=== PATIENT | female | born 1965 | race Two or more races ===

== ENCOUNTER 2024-06-01 12:24 | Emergency (ER) | payer MEDICARE, MEDICAID ==
[~2024-06-01] VITALS: Ht 149.9 cm; Wt 82.1 kg
[2024-06-01 13:34] VITALS: BP 155/77; PULSE 90; RESP 16; TEMP 98.4; O2SAT 95
[2024-06-01] MEDS ORDERED: TRAM50TA2 PO (14:04)
[2024-06-01] MEDS ORDERED: PRED20TA2 PO (14:04)
[2024-06-01] MEDS: KETOROLAC TROMETH 60MG/2ML VIAL IM ONE (14:07)
== END 2024-06-01 14:20 | disposition home or self-care (01) ==
LOC: ER 12:24
DX: M17.11 Unilateral primary osteoarthritis, right knee (principal); I10 Essential (primary) hypertension; J45.909 Unspecified asthma, uncomplicated; Z88.0 Allergy status to penicillin; Z79.899 Other long term (current) drug therapy
CPT/HCPCS: 73562; 96372; 99283; J1885